=== PATIENT | female | born 1955 | race Caucasian/White ===

== ENCOUNTER → 2017-10-21 09:25 | Outpatient (REF) | payer OTHER, SELFPAY ==
[2017-10-21 14:01] LABS: Amphetamine/Metha Screen,Urine Negative ng/mL (<1000); Barbiturates Screen,Urine Negative ng/mL (<200); Benzodiazepines Screen,Urine Positive ng/mL (200); Cannabinoid Screen,Urine Negative ng/mL (<50); Cocaine Screen,Urine Negative ng/g (<300); Methadone Screen,Urine Negative ng/mL (<300); Opiate Screen,Urine Negative ng/mL (<300); Phencyclidine Screen,Urine Negative ng/mL (<25)
== END ==
LOC: LAB 09:25
PROVIDERS: Visit Provider Physician Assistant
DX: Z79.899 Other long term (current) drug therapy (principal)
CPT/HCPCS: 80305

== ENCOUNTER → 2018-01-12 08:55 | Outpatient (REF) | payer OTHER, SELFPAY ==
[2018-01-12 19:23] LABS: Amphetamine/Metha Screen,Urine Negative ng/mL (<1000); Barbiturates Screen,Urine Negative ng/mL (<200); Benzodiazepines Screen,Urine Positive ng/mL (200); Cannabinoid Screen,Urine Negative ng/mL (<50); Cocaine Screen,Urine Negative ng/g (<300); Methadone Screen,Urine Negative ng/mL (<300); Opiate Screen,Urine Positive ng/mL (<300); Phencyclidine Screen,Urine Negative ng/mL (<25)
== END ==
LOC: LAB 08:55
PROVIDERS: Visit Provider Physician Assistant
DX: Z79.899 Other long term (current) drug therapy (principal)
CPT/HCPCS: 80305

== ENCOUNTER → 2018-06-15 10:59 | Outpatient (REF) | payer OTHER, SELFPAY ==
[2018-06-15 13:54] LABS: Amphetamine/Metha Screen,Urine Negative ng/mL (<1000); Barbiturates Screen,Urine Negative ng/mL (<200); Benzodiazepines Screen,Urine Positive ng/mL (<200); Cannabinoid Screen,Urine Negative ng/mL (<50); Cocaine Screen,Urine Negative ng/mL (<300); Methadone Screen,Urine Negative ng/mL (<300); Opiate Screen,Urine Negative ng/mL (<300); Phencyclidine Screen,Urine Negative ng/mL (<25)
== END ==
LOC: LAB 10:59
PROVIDERS: Visit Provider Physician Assistant
DX: Z79.899 Other long term (current) drug therapy (principal)
CPT/HCPCS: 80305

== ENCOUNTER → 2018-09-24 13:23 | Outpatient (CLI) | payer OTHER, SELFPAY ==
[2018-09-24 16:51] LABS: Amphetamine/Metha Screen,Urine Negative ng/mL (<1000); Barbiturates Screen,Urine Negative ng/mL (<200); Benzodiazepines Screen,Urine Positive ng/mL (<200); Cannabinoid Screen,Urine Negative ng/mL (<50); Cocaine Screen,Urine Negative ng/mL (<300); Methadone Screen,Urine Negative ng/mL (<300); Opiate Screen,Urine Negative ng/mL (<300); Phencyclidine Screen,Urine Negative ng/mL (<25)
[2018-10-02 19:07] LABS: Alprazolam Negative (Cutoff=100); Benzodiazepines Positive ng/mL (Cutoff=100); Clonazepam Negative (Cutoff=100); Flurazepam Negative (Cutoff=100); Lorazepam Negative (Cutoff=100); Midazolam Negative (Cutoff=100); Temazepam Negative (Cutoff=100); Triazolam Negative (Cutoff=100)
== END ==
PROVIDERS: Visit Provider Nurse Practitioner Family
DX: Z79.899 Other long term (current) drug therapy (principal)
CPT/HCPCS: 80305; 80346

== ENCOUNTER → 2018-12-02 14:11 | Outpatient (CLI) | payer OTHER, SELFPAY ==
[2018-12-02 15:33] LABS: Amphetamine/Metha Screen,Urine Negative ng/mL (<1000); Barbiturates Screen,Urine Negative ng/mL (<200); Benzodiazepines Screen,Urine Positive ng/mL (<200); Cannabinoid Screen,Urine Negative ng/mL (<50); Cocaine Screen,Urine Negative ng/mL (<300); Methadone Screen,Urine Negative ng/mL (<300); Opiate Screen,Urine Positive ng/mL (<300); Phencyclidine Screen,Urine Negative ng/mL (<25)
[2018-12-08 09:29] LABS: Alprazolam Positive (.); Benzodiazepines Positive ng/mL (Cutoff=100); Clonazepam Negative (Cutoff=100); Flurazepam Negative (Cutoff=100); Lorazepam Negative (Cutoff=100); Midazolam Negative (Cutoff=100); Temazepam Negative (Cutoff=100); Triazolam Negative (Cutoff=100)
== END ==
PROVIDERS: Visit Provider Physician Assistant
DX: Z79.899 Other long term (current) drug therapy (principal)
CPT/HCPCS: 80305; 80346

== ENCOUNTER → 2019-03-09 13:48 | Outpatient (CLI) | payer OTHER, SELFPAY ==
[2019-03-09 14:02] LABS: Basophils % 0.5 % (0.1-2.0); Eosinophils # 0.2 K/mm3 (0.0-0.4); Eosinophils % 2.1 % (0.1-12.0); Hemoglobin 13.9 g/dL (12.2-16.2); Lymphocytes # 2.1 K/mm3 (0.7-4.5); Mean Corpuscular HGB Conc 31.7 g/dL (31.8-35.4); Mean Corpuscular Hemoglobin 27.9 pg (27.0-31.2); Mean Corpuscular Volume 87.9 fl (81-99); Mean Platelet Volume 8.5 fl (7.4-10.4); Monocytes # 0.6 K/mm3 (0.1-1.0); Monocytes % 7.6 % (1.7-9.3); Neutrophils # 5.1 K/mm3 (1.8-7.8); Neutrophils % 63.9 % (37.0-80.0); Platelet Count 402 K/mm3 (142-424); Red Blood Count 5.01 M/mm3 (4.20-5.40); Red Cell Distribution Width 14.1 % (11.5-17.5)
[2019-03-09 14:48] LABS: Amphetamine/Metha Screen,Urine Negative ng/mL (<1000); Barbiturates Screen,Urine Negative ng/mL (<200); Benzodiazepines Screen,Urine Positive ng/mL (<200); Cannabinoid Screen,Urine Negative ng/mL (<50); Cocaine Screen,Urine Negative ng/mL (<300); Methadone Screen,Urine Negative ng/mL (<300); Opiate Screen,Urine Positive ng/mL (<300); Phencyclidine Screen,Urine Negative ng/mL (<25)
[2019-03-09 15:50] LABS: Alanine Aminotransferase 20 U/L (12-78); Albumin/Globulin Ratio 0.9 (1.1-1.8); Alkaline Phosphatase 111 U/L (46-116); Aspartate Amino Transferase 18 U/L (15-37); Bilirubin,Total 0.3 mg/dL (0.2-1.0); Blood Urea Nitrogen 7 mg/dL (7-18); Calcium 9.4 mg/dL (8.5-10.1); Carbon Dioxide 29 mmol/L (21.0-32.0); Chloride 97 mmol/L (98-107); Chol/HDL Ratio 9.3 (1-3.5); Cholesterol 213 mg/dL (140-200); Creatinine,Serum 0.77 mg/dL (0.55-1.02); Estimated Glomerular Filt Rate 76 ml/min (>60); GFR (African American) 92 ML/MIN (>60); Globulin 4.7 gm/dl (1.3-3.2); Glucose 85 mg/dL (74-106); HDL Cholesterol 23 mg/dL (29-89); LDL Cholesterol 151 mg/dL (0-130); Sodium 139 mmol/L (136-145); Thyroid Stimulating Hormone 4.07 uIU/ml (0.358-3.740); Total Protein,Serum 8.7 gm/dL (6.4-8.2); Triglycerides 196 mg/dL (30-200); VLDL Cholesterol 39 mg/dL (0-40)
[2019-03-10 18:57] LABS: Vitamin D 25 Hydroxy 30.2 ng/mL (30.0-100.0)
== END ==
PROVIDERS: Visit Provider Physician Assistant
DX: R53.83 Other fatigue (principal); Z79.899 Other long term (current) drug therapy
CPT/HCPCS: 80053; 80061; 80305; 82652; 84436; 84443; 85025

== ENCOUNTER → 2020-02-08 16:42 | Outpatient (CLI) | payer MEDICAID, SELFPAY ==
[2020-02-08 17:36] LABS: Chloride 92 mmol/L (98-107); Potassium 3.9 mmoL/L (3.5-5.1); Sodium 129 mmol/L (136-145)
[2020-02-08 17:39] LABS: Alanine Aminotransferase 10 U/L (12-78); Albumin Level 4.4 g/dl (3.5-5.0); Albumin/Globulin Ratio 1.2 (1.1-1.8); Alkaline Phosphatase 104 U/L (38-126); Anion Gap 14.9 mEq/L (5-15); Aspartate Amino Transferase 23 U/L (14-36); Bilirubin,Total 0.5 mg/dl (0.2-1.3); Blood Urea Nitrogen 4 mg/dl (7-17); Carbon Dioxide 26 mmol/L (22.0-30.0); Cholesterol 199 mg/dl (140-200); Estimated Glomerular Filt Rate 101 ml/min (>60); GFR (African American) 123 ML/MIN (>60); Globulin 3.8 g/dL (1.3-3.2); Total Protein,Serum 8.2 g/dl (6.3-8.2); Triglycerides 207 mg/dl (30-150); VLDL Cholesterol 41 mg/dL (0-40)
[2020-02-08 17:40] LABS: Calcium 9.2 mg/dl (8.4-10.2); Chol/HDL Ratio 8.7 (1-3.5); Glucose 114 mg/dl (74-100); HDL Cholesterol 23 mg/dl (40-60)
[2020-02-08 17:51] LABS: Direct LDL Cholesterol 160.09 mg/dL (100-129)
[2020-02-08 17:57] LABS: T4 (Thyroxine) 9.6 ug/dl (5.53-11.0)
[2020-02-08 18:10] LABS: Thyroid Stimulating Hormone 5.05 uIU/mL (0.465-4.68)
[2020-02-10 09:29] LABS: Vitamin D 25 Hydroxy 33.9 ng/mL (30.0-100.0)
== END ==
PROVIDERS: Visit Provider Physician Assistant
DX: E78.5 Hyperlipidemia, unspecified (principal); I10 Essential (primary) hypertension; E55.9 Vitamin D deficiency, unspecified; Z79.899 Other long term (current) drug therapy
CPT/HCPCS: 80053; 80061; 82652; 84436; 84443

== ENCOUNTER → 2021-01-09 17:00 | Outpatient (CLI) | payer MEDICAID, SELFPAY ==
[2021-01-09 18:45] LABS: Amphetamine/Metha Screen,Urine Negative ng/ml (<1000); Barbiturates Screen,Urine Negative ng/ml (<200)
[2021-01-09 18:46] LABS: Benzodiazepines Screen,Urine Positive ng/ml (<200)
[2021-01-09 18:47] LABS: Cannabinoid Screen,Urine Negative ng/ml (<50); Cocaine Screen,Urine Negative ng/ml (<300)
[2021-01-09 18:48] LABS: Methadone Screen,Urine Negative ng/ml (<300)
[2021-01-09 18:49] LABS: Opiate Screen,Urine Positive ng/ml (<300); Phencyclidine Screen,Urine Negative ng/ml (<25)
== END ==
PROVIDERS: Visit Provider Physician Assistant
DX: Z79.899 Other long term (current) drug therapy (principal)
CPT/HCPCS: 80305

== ENCOUNTER → 2021-12-19 17:31 | Outpatient (CLI) | payer MEDICAID, SELFPAY ==
[2021-12-19 14:36] LABS: Basophils # 0.1 K/mm3 (0-0.2); Basophils % 0.9 % (0.1-2.0); Eosinophils # 0.1 K/mm3 (0.0-0.4); Hematocrit 48.2 % (37.0-47.0); Lymphocytes # 2.2 K/mm3 (0.7-4.5); Lymphocytes % 26.5 % (10-50); Mean Corpuscular HGB Conc 33.2 g/dL (31.8-35.4); Mean Corpuscular Hemoglobin 32.8 pg (27.0-31.2); Mean Corpuscular Volume 98.9 fl (81-99); Mean Platelet Volume 10.1 fl (7.4-10.4); Monocytes # 0.5 K/mm3 (0.1-1.0); Monocytes % 6.1 % (1.7-9.3); Neutrophils # 5.4 K/mm3 (1.8-7.8); Neutrophils % 65.5 % (37.0-80.0); Platelet Count 485 K/mm3 (142-424); Red Blood Count 4.88 M/mm3 (4.20-5.40); Red Cell Distribution Width 15.9 % (11.5-17.5); White Blood Count 8.3 K/mm3 (4.8-10.8)
[2021-12-19 15:40] LABS: Alanine Aminotransferase 9 U/L (12-78); Albumin Level 4.8 g/dl (3.5-5.0); Albumin/Globulin Ratio 1.2 (1.1-1.8); Alkaline Phosphatase 111 U/L (38-126); Anion Gap 16.7 mEq/L (5-15); Aspartate Amino Transferase 20 U/L (14-36); Bilirubin,Total 0.5 mg/dl (0.2-1.3); Blood Urea Nitrogen 5 mg/dl (7-17); Calcium 9.5 mg/dl (8.4-10.2); Carbon Dioxide 31 mmol/L (22.0-30.0); Chloride 96 mmol/L (98-107); Chol/HDL Ratio 7.7 (1-3.5); Cholesterol 200 mg/dl (140-200); Estimated Glomerular Filt Rate 101 ml/min (>60); GFR (African American) 122 ML/MIN (>60); Globulin 3.9 g/dL (1.3-3.2); Glucose 70 mg/dl (74-100); HDL Cholesterol 26 mg/dl (40-60); Potassium 3.7 mmoL/L (3.5-5.1); Sodium 140 mmol/L (136-145); Total Protein,Serum 8.7 g/dl (6.3-8.2); Triglycerides 135 mg/dl (30-150); VLDL Cholesterol 27 mg/dL (0-40)
[2021-12-19 15:50] LABS: Direct LDL Cholesterol 127.87 mg/dL (100-129)
[2021-12-19 15:56] LABS: 25-OH Vitamin D, Total 31.3 ng/mL (30-100)
[2021-12-19 16:11] LABS: Thyroid Stimulating Hormone 2.83 uIU/mL (0.465-4.68)
[2021-12-19 16:46] LABS: Amphetamine/Metha Screen,Urine Negative ng/ml (<1000); Barbiturates Screen,Urine Negative ng/ml (<200)
[2021-12-19 16:47] LABS: Benzodiazepines Screen,Urine Positive ng/ml (<200)
[2021-12-19 16:48] LABS: Cannabinoid Screen,Urine Negative ng/ml (<50); Cocaine Screen,Urine Negative ng/ml (<300)
[2021-12-19 16:49] LABS: Methadone Screen,Urine Negative ng/ml (<300)
[2021-12-19 16:50] LABS: Opiate Screen,Urine Negative ng/ml (<300); Phencyclidine Screen,Urine Negative ng/ml (<25)
== END ==
PROVIDERS: Visit Provider Physician Assistant
DX: Z00.00 Encounter for general adult medical examination without abnormal findings (principal); F41.9 Anxiety disorder, unspecified; Z79.899 Other long term (current) drug therapy
CPT/HCPCS: 80053; 80061; 80305; 82306; 84443; 85025

== ENCOUNTER 2022-06-02 12:52 | Emergency (ER) | payer MEDICAID, SELFPAY ==
[2022-06-02 12:52] VITALS: BP 116/75; PULSE 107; RESP 18; TEMP 36.6; O2SAT 97; BMI 16.6
--- NOTE | 2022-06-02 13:07 | PC.NURSE ---
LAB HERE FOR BLOOD DRAW
--- NOTE | 2022-06-02 13:07 | PC.NURSE ---
WOUND CULTURES SENT TO LAB
[2022-06-02 13:30] VITALS: BP 88/67; PULSE 89
[2022-06-02 13:34] LABS: Basophils # 0.1 K/mm3 (0-0.2); Basophils % 1.3 % (0.1-2.0); Chloride 97 mmol/L (98-107); Eosinophils % 0.1 % (0.1-12.0); Hematocrit 35.2 % (37.0-47.0); Hemoglobin 10.8 g/dL (12.2-16.2); Lymphocytes # 1.1 K/mm3 (0.7-4.5); Lymphocytes % 13.8 % (10-50); Mean Corpuscular HGB Conc 30.8 g/dL (31.8-35.4); Mean Corpuscular Hemoglobin 26.9 pg (27.0-31.2); Mean Corpuscular Volume 87.5 fl (81-99); Monocytes # 0.6 K/mm3 (0.1-1.0); Monocytes % 8.2 % (1.7-9.3); Neutrophils # 5.8 K/mm3 (1.8-7.8); Neutrophils % 76.7 % (37.0-80.0); Platelet Count 796 K/mm3 (142-424); Potassium 3.3 mmoL/L (3.5-5.1); Red Blood Count 4.02 M/mm3 (4.20-5.40); Red Cell Distribution Width 18.9 % (11.5-17.5); Sodium 136 mmol/L (136-145); White Blood Count 7.6 K/mm3 (4.8-10.8)
[2022-06-02 13:37] LABS: Alanine Aminotransferase 15 U/L (12-78); Albumin Level 3.1 g/dl (3.5-5.0); Albumin/Globulin Ratio 0.6 (1.1-1.8); Alkaline Phosphatase 166 U/L (38-126); Anion Gap 11.3 mEq/L (5-15); Aspartate Amino Transferase 29 U/L (14-36); Bilirubin,Total 0.3 mg/dl (0.2-1.3); Blood Urea Nitrogen 11 mg/dl (7-17); Calcium 7.5 mg/dl (8.4-10.2); Carbon Dioxide 31 mmol/L (22.0-30.0); Creatinine Clearance Estimated 41 mL/min (50-200); Estimated Glomerular Filt Rate 101 ml/min (>60); GFR (African American) 122 ML/MIN (>60); Globulin 4.9 g/dL (1.3-3.2); Glucose 99 mg/dl (74-100)
[2022-06-02 13:42] LABS: Lactic Acid 2.2 mmol/L (0.7-2.1)
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
--- NOTE | 2022-06-02 13:48 | XR_ITS ---
FINAL REPORT CLINICAL HISTORY: large necrotic wounds FINDINGS: Three views of the left knee were obtained. There is no evidence of fracture or dislocation. The bony alignment is normal. The joint spaces are preserved. There is a sizable anterior soft tissue defect extending to the patella. A joint effusion is present. There is extensive soft tissue swelling. IMPRESSION: Sizable anterior soft tissue defect extending to the patella. Joint effusion. Reviewed, Interpreted and Dictated by Luis Billings III, MD Transcribed by Sammy Vu Authenticated and [facility]
--- NOTE | 2022-06-02 13:48 | XR_ITS ---
FINAL REPORT CLINICAL HISTORY: large necrotic wounds FINDINGS: Three views of the right knee were obtained. There is no evidence of fracture or dislocation. There are mild degenerative changes. There is a small suprapatellar soft tissue defect. A large joint effusion is present. IMPRESSION: Small suprapatellar soft tissue defect. Large joint effusion. Reviewed, Interpreted and Dictated by Luis Billings III, MD Transcribed by Sammy Vu Authenticated and [facility]
--- NOTE | 2022-06-02 14:03 | PC.NURSE ---
notified rad of xray orders
--- NOTE | 2022-06-02 14:47 | PC.NURSE ---
Dr Tierney spoke with Dr Wagoner, he advised send to [facility]
--- NOTE | 2022-06-02 14:47 | PC.NURSE ---
[facility] called for transfer
--- NOTE | 2022-06-02 15:55 | PC.NURSE ---
mick knee wounds with dsd applied
[2022-06-02 16:10] VITALS: BP 112/65; PULSE 78; RESP 16; TEMP 36.6; O2SAT 98
[2022-06-02 17:25] LABS: Reflex Lactic Add Lactic Reflex
== END 2022-06-02 16:11 | disposition home or self-care (01) ==
PROVIDERS: Emergency Provider Emergency Medicine
DX: S81.002A Unspecified open wound, left knee, initial encounter (principal); S81.001A Unspecified open wound, right knee, initial encounter; L97.828 Non-pressure chronic ulcer of other part of left lower leg with other specified severity; L97.818 Non-pressure chronic ulcer of other part of right lower leg with other specified severity; B96.89 Other specified bacterial agents as the cause of diseases classified elsewhere; Z57.4 Occupational exposure to toxic agents in agriculture
CPT/HCPCS: 73560; 80053; 83605; 85025; 87040; 87070; 87077; 87186; 87205; 96374; 99284

== ENCOUNTER → 2022-09-02 14:30 | Outpatient (CLI) | payer MEDICARE, MEDICAID, SELFPAY ==
[2022-09-02 18:46] LABS: Phencyclidine Screen,Urine Negative ng/ml (<25)
[2022-09-02 18:56] LABS: Amphetamine/Metha Screen,Urine Negative ng/ml (<1000); Barbiturates Screen,Urine Negative ng/ml (<200)
[2022-09-02 18:57] LABS: Benzodiazepines Screen,Urine Positive ng/ml (<200)
[2022-09-02 18:58] LABS: Cannabinoid Screen,Urine Negative ng/ml (<50); Cocaine Screen,Urine Negative ng/ml (<300)
[2022-09-02 18:59] LABS: Methadone Screen,Urine Negative ng/ml (<300)
[2022-09-02 19:00] LABS: Opiate Screen,Urine Positive ng/ml (<300)
== END ==
PROVIDERS: PCP Physician Assistant; Visit Provider Physician Assistant
DX: M51.36 Other intervertebral disc degeneration, lumbar region (principal)
CPT/HCPCS: 80305